=== PATIENT | female | born 1955 | race Caucasian/White ===

== ENCOUNTER 2018-03-16 10:04 | Outpatient (CLI) | payer OTHER | END 2018-03-16 10:05 | disposition home or self-care (01) | LOC: BICRAD 10:04 | PROVIDERS: ATTEND Internal Medicine Cardiovascular Disease | DX: I10 Essential (primary) hypertension (principal) | CPT/HCPCS: 71046 ==

== ENCOUNTER 2020-06-09 06:58 | Outpatient (CLI) | payer MEDICARE, OTHER ==
[2020-06-10 12:08] LABS: SARS-CoV-2 MS2 Positive; SARS-CoV-2 N Gene Negative; SARS-CoV-2 S Gene Negative; SARS-CoV-2 by NAA Not Detected (NotDetected); SARS-CoV-2 orf1ab Negative
== END 2020-06-09 06:59 | disposition home or self-care (01) ==
LOC: LABBT 06:58
PROVIDERS: ATTEND Internal Medicine Gastroenterology
DX: Z20.828 Contact with and (suspected) exposure to other viral communicable diseases (principal)
CPT/HCPCS: 87635; U0003

== ENCOUNTER 2020-06-12 08:32 | Day surgery (SDC) | payer MEDICARE ==
[2020-06-11 10:48] VITALS: BMI 46.7
[2020-06-12] MEDS ORDERED: PROPOFOL 200 MG/20 ML VIAL ONE (10:58)
[2020-06-12] MEDS ORDERED: Lidocaine 1% PF 5 ML VIAL ONE (10:58)
--- NOTE | 2020-06-12 11:44 | OP ---
DATE OF PROCEDURE: 06/12/2020 PREPROCEDURE DIAGNOSIS: Colorectal cancer surveillance. Prior history of polyps 5 years ago in [place], reports not available. POSTPROCEDURE DIAGNOSES: 1. Diverticulosis coli. 2. Otherwise normal colonoscopy. The patient can resume all medications including anticoagulation today. RECOMMENDATIONS: Repeat colonoscopy in 7 years. ANESTHESIA: TIVA. DESCRIPTION OF PROCEDURE: After the patient was informed of the risks, benefits, and possible complications of endoscopy including perforation, bleeding, reaction to medication, and aspiration, informed consent was obtained. The patient was brought to the endoscopy suite, where she was sedated in gradual fashion. Once she was comfortable, a rectal examination was performed, which was normal. The endoscope was advanced to the anal canal through the colon to the cecum, which was identified by the ileocecal valve and appendiceal orifice. Retroflexed views in the right colon were normal. The scope revealed no masses or lesions. There was diverticulosis coli in the left colon. Prep was good. Retroflexed views in the rectum were normal. The scope was removed. The patient tolerated the procedure well. There were no complications. Job ID: [id number]
== END 2020-06-12 11:28 | disposition home or self-care (01) ==
LOC: SDC 08:32
PROVIDERS: ATTEND Internal Medicine Gastroenterology
PROC: 0DJD8ZZ Inspection of Lower Intestinal Tract, Via Natural or Artificial Opening Endoscopic (ICD-10-PCS; principal; 2020-06-12)
DX: Z12.11 Encounter for screening for malignant neoplasm of colon (principal); K57.30 Diverticulosis of large intestine without perforation or abscess without bleeding; E11.9 Type 2 diabetes mellitus without complications; I48.91 Unspecified atrial fibrillation; F41.9 Anxiety disorder, unspecified; G47.30 Sleep apnea, unspecified; Z79.01 Long term (current) use of anticoagulants; Z79.82 Long term (current) use of aspirin; Z79.899 Other long term (current) drug therapy; Z86.010 Personal history of colon polyps; Z88.0 Allergy status to penicillin
CPT/HCPCS: J2704

== ENCOUNTER 2021-03-17 08:58 | Outpatient (CLI) | payer MEDICARE | END 2021-03-17 08:59 | disposition home or self-care (01) | LOC: PET 08:58 | PROVIDERS: ATTEND Internal Medicine Hematology & Oncology | DX: R59.0 Localized enlarged lymph nodes (principal) | CPT/HCPCS: 78815; A9552 ==

== ENCOUNTER 2022-03-15 13:56 | Outpatient (CLI) | payer MEDICARE | END 2022-03-15 13:57 | disposition home or self-care (01) | LOC: BICMAMMO 13:56 | PROVIDERS: ATTEND Internal Medicine | DX: Z12.31 Encounter for screening mammogram for malignant neoplasm of breast (principal); Z91.89 Other specified personal risk factors, not elsewhere classified | CPT/HCPCS: 77063; 77067 ==

== ENCOUNTER 2023-03-30 11:06 | Outpatient (CLI) | payer MEDICARE | END 2023-03-30 11:07 | disposition home or self-care (01) | LOC: BICMAMMO 11:06 | PROVIDERS: ATTEND Internal Medicine | DX: Z12.31 Encounter for screening mammogram for malignant neoplasm of breast (principal); Z91.89 Other specified personal risk factors, not elsewhere classified | CPT/HCPCS: 77063; 77067 ==

== ENCOUNTER 2024-08-02 12:43 | Outpatient (CLI) | payer MEDICARE | END 2024-08-02 12:44 | disposition home or self-care (01) | LOC: BICMAMMO 12:43 | PROVIDERS: ATTEND Internal Medicine | DX: Z12.31 Encounter for screening mammogram for malignant neoplasm of breast (principal); N63.20 Unspecified lump in the left breast, unspecified quadrant; Z91.89 Other specified personal risk factors, not elsewhere classified | CPT/HCPCS: 77063; 77067 ==

== ENCOUNTER 2024-08-17 14:05 | Outpatient (CLI) | payer MEDICARE | END 2024-08-17 14:06 | disposition home or self-care (01) | LOC: BICMAMMO 14:05 | PROVIDERS: ATTEND Internal Medicine | DX: N63.20 Unspecified lump in the left breast, unspecified quadrant (principal) | CPT/HCPCS: 77065; G0279 ==